=== PATIENT | female | born 1990 | race Caucasian/White ===

== ENCOUNTER 2019-07-01 15:57 | Emergency (ER) | payer MEDICAID ==
[~2019-07-01] VITALS: Ht 160 cm; Wt 56.8 kg
--- NOTE | 2019-07-01 16:19 | NUR ---
Friend Anastasia [phone]
[2019-07-01] MEDS ORDERED: SODIUM CHLORIDE 0.9% 1,000ML IVBOLUS ONE (16:30)
[2019-07-01] MEDS ORDERED: SODIUM CHLORIDE FLUSH 10ML SYR IVF ONE (16:30)
[2019-07-01] MEDS ORDERED: ONDANSETRON 2MG/ML, 2ML IVPush ONE (16:30)
[2019-07-01] MEDS ORDERED: MORPHINE SULFATE 4 MG/ML, 1ML IVPush PRN (16:30)
[2019-07-01] MEDS ORDERED: ONDANSETRON 2MG/ML, 2ML ONE (16:34)
[2019-07-01] MEDS ORDERED: MORPHINE SULFATE 4 MG/ML, 1ML ONE (16:35)
--- NOTE | 2019-07-01 16:40 | NUR ---
PT WITH C/O CRAMPING ABD PAIN RLQ, PT STATES IT STARTED THIS AM WHEN SHE WOKE UP. PT CRYING AND YELLING "HELP ME PLEASE IM CRAMPING UP". UNABLE TO GET MUCH DETAIL TO WHEN THIS BEGAN, PT DID DENY N/V, STATES "IM JUST DIZZY" PIV INITIATED, PT MEDICATED PER OCT PT TO BP, CARD MONITOR, CONT PULSE OX
[2019-07-01 16:41] LABS: MEAN CORPUSCULAR HEMOGLOBIN 32.9 pg (27.0-34.8); MEAN CORPUSCULAR HGB CONC 33.2 g/dL (32.4-35.8); MEAN CORPUSCULAR VOLUME 99.2 fL (80-100); MEAN PLATELET VOLUME 7.3 fL (7.4-10.4); PLATELET COUNT 280 x10^3/uL (130-400); RED BLOOD COUNT 4.43 x10^6/uL (3.82-5.3); RED CELL DISTRIBUTION WIDTH 12.7 % (9.6-15.2)
[2019-07-01 16:52] LABS: ALANINE AMINOTRANSFERASE 20 U/L (12-78); ALBUMIN 3.7 g/dL (3.4-5.0); ANION GAP 10 mmol/L (5-15); CALCIUM 8.8 mg/dL (8.5-10.1); CHLORIDE 103 mmol/L (98-107)
[2019-07-01 16:57] LABS: ALKALINE PHOSPHATASE 75 U/L (45-117); BILIRUBIN,TOTAL 2.3 mg/dL (0.2-1.0); TOTAL PROTEIN 7.4 g/dL (6.4-8.2)
[2019-07-01 17:09] LABS: BASOPHILS # (AUTO) 0.01 x10^3/uL (0-0.1); BASOPHILS % (AUTO) 0 % (0-1); EOSINOPHILS % (AUTO) 0 % (1-7); LYMPHOCYTES # (AUTO) 0.63 x10^3/uL (1-3.4); LYMPHOCYTES % (AUTO) 5 % (22-44); MD SCAN; MONOCYTES # (AUTO) 0.04 x10^3/uL (0.2-0.8); MONOCYTES % (AUTO) 0 % (2-9); NEUTROPHILS # (AUTO) 11.68 x10^3/uL (1.8-6.8); NEUTROPHILS % (AUTO) 95 % (42-75)
[2019-07-01] MEDS ORDERED: LORazepam 2 MG/ML, 1ML ONE (17:11)
--- NOTE | 2019-07-01 17:17 | NUR ---
PT CONTINUES TO SCREAM AND YELL "IT HURTS, THE PRESSURE" OVER AND OVER. ADDITIONAL ORDERS RECIEVED, PT MEDICATED WITH ATIVAN. WILL CONTINUE TO MONITOR
--- NOTE | 2019-07-01 17:40 | NUR ---
PT TO CT
[2019-07-01] MEDS ORDERED: OMNIPAQUE 350 MG/ML, 100ML BOTTLE ONE (17:55)
[2019-07-01 17:58] VITALS: BP 114/76
--- NOTE | 2019-07-01 17:58 | NUR ---
PT BACK FROM CT, PT IS MUCH CALMER, RATES PAIN 5/10 AT THIS TIME, PREVIOUSLY UNABLE TO GET A NUMBER SCALE.
[2019-07-01] MEDS ORDERED: LORazepam 2 MG/ML, 1ML IVPush ONE (18:00)
[2019-07-01 19:39] LABS: CULTURE INDICATED? NO; MICROSCOPIC AUTO
[2019-07-01 19:47] LABS: AMPHETAMINE SCREEN, URINE Positive (Negative); BARBITURATE SCREEN, URINE Negative (Negative); BENZODIAZEPINE SCREEN, URINE Negative (Negative); CANNABINOID SCREEN, URINE Positive (Negative); COCAINE SCREEN, URINE Negative (Negative); METHADONE SCREEN, URINE Negative (Negative); OPIATE SCREEN, URINE Positive (Negative)
== END 2019-07-01 20:37 | disposition home or self-care (01) ==
LOC: ED 20:05
DX: R10.11 Right upper quadrant pain (principal); F17.200 Nicotine dependence, unspecified, uncomplicated
CPT/HCPCS: 36415; 74177; 76700; 80053; 80307; 81001; 83690; 84703; 85025; 96374; 96375; 99284; J2060; J2270; J2405; J7030; Q9967